=== PATIENT | male | born 1990 ===

== ENCOUNTER 2017-04-19 06:47 | Emergency (ER) | payer BC ==
[2017-04-19 07:11] VITALS: O2SAT 98
[2017-04-19] MEDS ORDERED: Sodium Chloride 0.9% 1,000 ML IV STA (07:18)
--- NOTE | 2017-04-19 07:27 | ED PDOC ---
HPI: Abdomen Time Seen by Provider: 04/19/17 07:09 Chief Complaint (Nursing): Abdominal Pain Chief Complaint (Provider): Epigastric Pain History Per: Patient History/Exam Limitations: no limitations Onset/Duration Of Symptoms: Days (x1) Current Symptoms Are (Timing): Still Present Additional Complaint(s): Jose Guerra is a 27 year old male presenting to the ED for an evaluation of epigastric pain associated with nausea, vomiting, and diarrhea occurring since last night. The patient is unable to tolerate PO intake. He denies fever, blood in stool, or blood in vomitus. PMD: TBD Past Medical History Reviewed: Historical Data, Nursing Documentation, Vital Signs Vital Signs: Last Vital Signs Temp 99.8 F H 04/19/17 09:11 Pulse 82 04/19/17 07:08 Resp 16 04/19/17 07:08 BP 130/77 04/19/17 07:08 Pulse Ox 98 04/19/17 07:30 - Medical History PMH: No Chronic Diseases - Surgical History Surgical History: No Surg Hx - Family History Family History: States: No Known Family Hx - Home Medications Home Medications: Ambulatory Orders Medication Instructions Recorded Ondansetron ODT [Zofran ODT] 4 mg PO Q8 #6 odt 04/19/17 - Allergies Allergies/Adverse Reactions: Allergies Allergy/AdvReac Type Severity Reaction Status Date / Time cefaclor [From [facility]] Allergy ANAPHYLAXIS Verified 04/19/17 07:13 Review of Systems ROS Statement: Except As Marked, All Systems Reviewed And Found Negative Constitutional: Negative for: Fever Gastrointestinal: Positive for: Nausea, Vomiting, Abdominal Pain (epigastric pain), Diarrhea. Negative for: Hematochezia, Hematemesis, Other (unable to tolerate PO intake) Physical Exam - Reviewed Nursing Documentation Reviewed: Yes Vital Signs Reviewed: Yes - Physical Exam Appears: Positive for: Non-toxic, No Acute Distress Head Exam: Positive for: ATRAUMATIC, NORMOCEPHALIC Skin: Positive for: Normal Color, Warm, Dry Eye Exam: Positive for: Normal appearance, EOMI ENT: Positive for: Pharynx Is (mucous membranes dry) Neck: Positive for: Normal, Painless ROM Cardiovascular/Chest: Positive for: Regular Rate, Rhythm, Chest Non Tender Respiratory: Positive for: Normal Breath Sounds. Negative for: Respiratory Distress Gastrointestinal/Abdominal: Positive for: Soft, Tenderness (epigastric tenderness) Extremity: Positive for: Normal ROM. Negative for: Deformity Neurologic/Psych: Positive for: Alert, Oriented (x3). Negative for: Motor/ Sensory Deficits - Laboratory Results Result Diagrams: 04/19/17 07:35 04/19/17 07:35 - ECG O2 Sat by Pulse Oximetry: 98 (RA) Pulse Ox Interpretation: Normal - Progress Re-evaluation Time: 09:31 Condition: Improved (Tolerated PO fluids) Medical Decision Making Medical Decision Making: Time: 07:09 Impression: Epigastric pain associated with nausea, vomiting, and diarrhea Plan: * CMP * CBC (with differential) * NS 0.9% 1,000 ml IV 250 mls/hr * Pepcid 20 mg IVP * Zofran 4 mg IVP * Reevaluation Scribe Attestation: Documented by Jammie Diallo, acting as a scribe for Sal Stanley MD. Provider Scribe Attestation: All medical record entries made by the Scribe were at my direction and personally dictated by me. I have reviewed the chart and agree that the record accurately reflects my personal performance of the history, physical exam, medical decision making, and the department course for this patient. I have also personally directed, reviewed, and agree with the discharge instructions and disposition. Disposition - Clinical Impression Clinical Impression: Gastroenteritis - Patient ED Disposition Is Patient to be Admitted: No Counseled Patient/Family Regarding: Studies Performed, Diagnosis, Need For Followup, Rx Given - Disposition Referrals: [facility] [Outside] Disposition: Routine/Home Disposition Time: 09:32 Condition: FAIR Prescriptions: Ondansetron ODT [Zofran ODT] 4 mg PO Q8 #6 odt Forms: [employer] ([place]ian)
[2017-04-19 07:52] LABS: BASO % 0.1 % (0.0-2.0); EOS % 0.1 % (0.0-4.0); HEMATOCRIT 45.4 % (35.0-51.0); LYMPH # 0.3 K/uL (1.0-4.3); LYMPH % 2.9 % (20.0-40.0); MEAN CELL VOLUME 86.1 fl (80.0-94.0); MEAN CORPUSCULAR HEMOGLOBIN 30.2 pg (27.0-31.0); MEAN CORPUSCULAR HGB CONC 35.1 g/dL (33.0-37.0); MEAN PLATELET VOLUME 8.4 fl (7.2-11.7); MONO # 0.4 K/uL (0.0-0.8); MONO % 3.8 % (0.0-10.0); NEUT # 8.6 K/uL (1.8-7.0); NEUT % 93.1 % (50.0-75.0); PLATELET COUNT 177 K/uL (130-400); RED CELL DISTRIBUTION WIDTH 13.1 % (11.5-14.5); WHITE BLOOD COUNT 9.3 K/uL (4.8-10.8)
[2017-04-19 07:56] LABS: ALB/GLOB RATIO 1.6 (1.0-2.1); ALKALINE PHOSPHATASE 63 U/L (38-126); ALT/SGPT 39 U/L (21-72); AST/SGOT 47 U/L (17-59); BLOOD UREA NITROGEN 18 mg/dl (9-20); CALCIUM 9.5 mg/dL (8.4-10.2); CARBON DIOXIDE 24 mmol/L (22-30); CHLORIDE 106 mmol/L (98-107); GFR AFRICAN-AMERICAN > 60; GLUCOSE,RANDOM 118 mg/dL (75-110); SODIUM 141 mmol/l (132-148); TOTAL PROTEIN 7.6 G/DL (6.3-8.2)
[2017-04-19 09:38] VITALS: BP 120/78; PULSE 78; RESP 17; TEMP 99.6
[2017-04-19 11:31] LABS: EOSINOPHIL 1 % (0-7); NEUTROPHIL 87 % (42-75); TOTAL CELLS COUNTED 100
== END 2017-04-19 09:38 | disposition home or self-care (01) ==
LOC: H.ER 06:47
DX: K52.9 Noninfective gastroenteritis and colitis, unspecified (principal)
CPT/HCPCS: 80053; 85025; 96374; 96375; 99282; J2405; J7040